=== PATIENT | male | born 1935 | race Asian ===

== ENCOUNTER 2022-03-06 09:51 | Day surgery (SDC) | payer OTHER ==
[~2022-03-06] VITALS: Ht 165.1 cm; Wt 146.0 kg
[2022-03-06] MEDS ORDERED: ASPI81CH PO (10:51)
[2022-03-06] MEDS ORDERED: METO25 PO (10:51)
[2022-03-06] MEDS ORDERED: THERA-D2000 UNIT PO (10:52)
[2022-03-06] MEDS ORDERED: ATOR20 PO (10:52)
[2022-03-06] MEDS ORDERED: TAMS.4ER PO (10:53)
[2022-03-06] MEDS ORDERED: B-121000 MC3 PO (10:53)
[2022-03-06] MEDS ORDERED: INDO50 PO (10:53)
[2022-03-06] MEDS ORDERED: ZINC15 PO (10:54)
--- NOTE | 2022-03-06 11:49 | NUR ---
PATIENT IS S/P LU[facility] DR. JARAMILLO SPOKE WITH THE IN THE WAITING ROOM. PAIIENT IS WAKING AND AN=SKING FOR AND A REPORT. BROUGHT TO THE BEDSIDE. UPDATE PATIENT ON RESULTS TOLD TO HER FROM DR. JARAMILLO. SATURATION IS 97% OTHER VSS. CONTINUE TO RECOVER.
--- NOTE | 2022-03-06 12:03 | NUR ---
FERadha IS OFF OXYGEN, MAINTAINING ROOM AIR SAT AT 97%. CLEARING THROAT AND USING SUCTION ON SELF. NO BLOOD NOTED.
== END 2022-03-06 23:19 | disposition home or self-care (01) ==
LOC: MHTC 09:51
DX: I08.3 Combined rheumatic disorders of mitral, aortic and tricuspid valves (principal); I70.0 Atherosclerosis of aorta; I25.10 Atherosclerotic heart disease of native coronary artery without angina pectoris; Z95.5 Presence of coronary angioplasty implant and graft; I10 Essential (primary) hypertension; E78.5 Hyperlipidemia, unspecified; K21.9 Gastro-esophageal reflux disease without esophagitis; Z79.82 Long term (current) use of aspirin; Z88.7 Allergy status to serum and vaccine
CPT/HCPCS: 93312; 93325; A9270; J2001; J2704; J7030

== ENCOUNTER 2023-02-09 16:23 | Emergency (ER) | payer OTHER ==
[~2023-02-09] VITALS: Ht 165.1 cm; Wt 68.0 kg
[~2023-02-09 16:23] MED LIST: ASPI81CH PO; ATOR20 PO; B-121000 MC3 PO; INDO50 PO; METO25 PO; TAMS.4ER PO; THERA-D2000 UNIT PO; ZINC15 PO
[2023-02-09] MEDS ORDERED: FAMO20 (17:09)
[2023-02-09 17:15] LABS: BASOPHILS ABSOLUTE AUTO 0.02 K/mm3 (0.00-0.23); BASOPHILS PERCENT AUTO 0 % (0-2); EOSINOPHILS ABSOLUTE AUTO 0.16 K/mm3 (0.00-0.68); EOSINOPHILS PERCENT AUTO 3 % (0-6); Hematocrit 38.1 % (37.0-53.0); Hemoglobin 13.1 g/dL (13.5-17.5); IMMATURE GRAN ABSOLUTE AUTO 0.01 K/mm3 (0.00-0.10); IMMATURE GRAN PERCENT AUTO 0 % (0-1); LYMPHOCYTES ABSOLUTE AUTO 1.42 K/mm3 (0.84-5.20); LYMPHOCYTES PERCENT AUTO 23 % (21-46); MONOCYTES ABSOLUTE AUTO 0.34 K/mm3 (0.16-1.47); MONOCYTES PERCENT AUTO 6 % (4-13); Mean Corpuscular HGB 31.5 pg (26.0-34.0); Mean Corpuscular HGB Conc 34.4 g/dL (31.5-36.5); Mean Corpuscular Volume 92 fL (80-100); Mean Platelet Volume 11.4 fL (9.1-12.4); NEUTROPHILS ABSOLUTE AUTO 4.24 K/mm3 (1.96-9.15); NEUTROPHILS PERCENT AUTO 69 % (41-73); Platelet Count 125 K/mm3 (150-400); RDW Coefficient Variation 13.1 % (11.7-14.2); RDW Standard Deviation 43.7 fL (35.1-46.3); Red Blood Cell Count 4.16 M/mm3 (4.30-5.90); White Blood Cell Count 6.19 K/mm3 (4.00-11.30)
[2023-02-09 17:52] LABS: Albumin, Blood 3.8 g/dL (3.4-5.0); Albumin/Globulin Ratio 1.2 (0.8-1.8); Bun/Creatinine Ratio 17.4 (12.0-20.0); Calcium, Blood 9.3 mg/dL (8.5-10.1); Creatinine, Blood 0.86 mg/dL (0.60-1.20); Globulin, Blood 3.1 g/dL (2.2-4.0); Total Protein, Blood 6.9 g/dL (6.4-8.2)
[2023-02-09 21:30] VITALS: BP 181/105
== END 2023-02-09 22:14 | disposition home or self-care (01) ==
LOC: ER 16:23
PROVIDERS: Student in an Organized Health Care Education/Training Program
DX: R07.9 Chest pain, unspecified (principal); I25.10 Atherosclerotic heart disease of native coronary artery without angina pectoris; N40.0 Benign prostatic hyperplasia without lower urinary tract symptoms; M10.9 Gout, unspecified; E78.5 Hyperlipidemia, unspecified; Z88.7 Allergy status to serum and vaccine; Z79.899 Other long term (current) drug therapy; Z79.82 Long term (current) use of aspirin
CPT/HCPCS: 71046; 80053; 84484; 85025; 93005; 93010; 99284-25; A9270

== ENCOUNTER 2024-12-11 12:32 | Emergency (ER) | payer OTHER ==
[~2024-12-11] VITALS: Ht 165.1 cm; Wt 70.3 kg
[~2024-12-11 12:32] MED LIST changes: -ATOR20 PO; +FAMO20; +ROSUVASTATIN CA10 MG PO; -THERA-D2000 UNIT PO; +VITAMIN D325 MC3 PO; -ZINC15 PO; +ZINC50 M3 PO
[2024-12-11 13:49] LABS: Albumin, Blood 3.5 g/dL (3.4-5.0); Albumin/Globulin Ratio 0.9 (0.8-1.8); BASOPHILS ABSOLUTE AUTO 0.02 K/mm3 (0.00-0.23); BASOPHILS PERCENT AUTO 0 % (0-2); Bilirubin, Total 1.7 mg/dL (0.1-1.0); Bun/Creatinine Ratio 14.8 (12.0-20.0); Calcium, Blood 9.2 mg/dL (8.5-10.1); Creatinine, Blood 0.95 mg/dL (0.60-1.20); EOSINOPHILS ABSOLUTE AUTO 0.01 K/mm3 (0.00-0.68); EOSINOPHILS PERCENT AUTO 0 % (0-6); Globulin, Blood 3.7 g/dL (2.2-4.0); Hematocrit 36.8 % (37.0-53.0); Hemoglobin 12.9 g/dL (13.5-17.5); IMMATURE GRAN ABSOLUTE AUTO 0.04 K/mm3 (0.00-0.10); IMMATURE GRAN PERCENT AUTO 1 % (0-1); LYMPHOCYTES ABSOLUTE AUTO 1.42 K/mm3 (0.84-5.20); LYMPHOCYTES PERCENT AUTO 20 % (21-46); MONOCYTES ABSOLUTE AUTO 0.93 K/mm3 (0.16-1.47); MONOCYTES PERCENT AUTO 13 % (4-13); Mean Corpuscular HGB 30.9 pg (26.0-34.0); Mean Corpuscular HGB Conc 35.1 g/dL (31.5-36.5); Mean Corpuscular Volume 88 fL (80-100); NEUTROPHILS PERCENT AUTO 66 % (41-73); Platelet Count 88 K/mm3 (150-400); Potassium, Blood 3.9 mmol/L (3.5-5.5); RDW Coefficient Variation 13.7 % (11.7-14.2); RDW Standard Deviation 44.4 fL (35.1-46.3); Red Blood Cell Count 4.18 M/mm3 (4.30-5.90); Total Protein, Blood 7.2 g/dL (6.4-8.2); White Blood Cell Count 7.02 K/mm3 (4.00-11.30)
[2024-12-11] MEDS ORDERED: Acetaminophen 500 MG Tab PO ONE (14:00)
[2024-12-11] MEDS ORDERED: Ketorolac Tromethamine 15mg Vial IV ONE (14:00)
[2024-12-11 16:01] LABS: Source, Urine Clean Catch
[2024-12-11 16:06] LABS: Appearance, Urine Clear (Clear); Bilirubin, Urine Neg (Neg); Blood, Urine 4+ (Neg); Color, Urine Yellow (P-Yellow); Glucose Qualitative, Urine Neg (Neg); Ketones, Urine 1+ (Neg); Leukocyte Esterase, Urine Neg (Neg); Nitrite, Urine Neg (Neg); Protein, Urine 3+ (Neg); Specific Gravity, Urine 1.015 (1.003-1.022); Urobilinogen, Urine NORM (Normal)
[2024-12-11 16:25] LABS: Bacteria Few /hpf; Squamous Epithelial Cells Not Seen /hpf (Few); White Blood Cells, Urine 0-2 /hpf (0-5)
[2024-12-11] MEDS ORDERED: ACET500 PO (16:26)
[2024-12-11 16:49] VITALS: BP 112/59
[2024-12-13] MEDS ORDERED: MAGNESIUM PO (12:47)
[2024-12-13] MEDS ORDERED: COLCRYS0.6 M1 PO (12:50)
[2024-12-13] MEDS ORDERED: AMLO5 PO (12:52)
[2024-12-13] MEDS ORDERED: ALLO100 PO (12:52)
[2024-12-13] MEDS ORDERED: ZYRTEC10 M2 PO (12:52)
== END 2024-12-11 16:51 | disposition home or self-care (01) ==
LOC: ER 12:32
PROVIDERS: Emergency Medicine; Student in an Organized Health Care Education/Training Program
DX: R07.89 Other chest pain (principal); E78.5 Hyperlipidemia, unspecified; I25.10 Atherosclerotic heart disease of native coronary artery without angina pectoris; N40.0 Benign prostatic hyperplasia without lower urinary tract symptoms; M10.9 Gout, unspecified; I73.9 Peripheral vascular disease, unspecified; Z95.0 Presence of cardiac pacemaker; Z88.7 Allergy status to serum and vaccine; Z79.82 Long term (current) use of aspirin; Z79.899 Other long term (current) drug therapy
CPT/HCPCS: 71045; 80053; 81001; 83605; 84484; 85025; 87040; 87077; 93005; 93010; 96374; 99285-25; A9270; J1885

== ENCOUNTER 2024-12-12 13:59 | Inpatient (IN) | payer OTHER ==
[~2024-12-12] VITALS: Ht 165.1 cm; Wt 69.5 kg
[~2024-12-12 13:59] MED LIST changes: +ACET500 PO
[2024-12-12] MEDS ORDERED: CefTRIAXone Sodium 1,000 MG in NS 50 ML IV ONE (14:15)
[2024-12-12 14:56] LABS: BASOPHILS ABSOLUTE AUTO 0.01 K/mm3 (0.00-0.23); BASOPHILS PERCENT AUTO 0 % (0-2); EOSINOPHILS ABSOLUTE AUTO 0.02 K/mm3 (0.00-0.68); EOSINOPHILS PERCENT AUTO 0 % (0-6); Hematocrit 34.2 % (37.0-53.0); IMMATURE GRAN ABSOLUTE AUTO 0.02 K/mm3 (0.00-0.10); IMMATURE GRAN PERCENT AUTO 0 % (0-1); LYMPHOCYTES PERCENT AUTO 11 % (21-46); MONOCYTES ABSOLUTE AUTO 0.57 K/mm3 (0.16-1.47); MONOCYTES PERCENT AUTO 9 % (4-13); Mean Corpuscular HGB 30.7 pg (26.0-34.0); Mean Corpuscular HGB Conc 35.1 g/dL (31.5-36.5); Mean Corpuscular Volume 88 fL (80-100); Mean Platelet Volume 11.7 fL (9.1-12.4); NEUTROPHILS ABSOLUTE AUTO 5.14 K/mm3 (1.96-9.15); NEUTROPHILS PERCENT AUTO 80 % (41-73); Platelet Count 93 K/mm3 (150-400); RDW Coefficient Variation 13.7 % (11.7-14.2); RDW Standard Deviation 43.6 fL (35.1-46.3); Red Blood Cell Count 3.91 M/mm3 (4.30-5.90); White Blood Cell Count 6.46 K/mm3 (4.00-11.30)
[2024-12-12 15:21] LABS: Albumin, Blood 3.2 g/dL (3.4-5.0); Albumin/Globulin Ratio 0.9 (0.8-1.8); Bilirubin, Total 1.4 mg/dL (0.1-1.0); Bun/Creatinine Ratio 16.3 (12.0-20.0); Calcium, Blood 8.9 mg/dL (8.5-10.1); Creatinine, Blood 0.92 mg/dL (0.60-1.20); Globulin, Blood 3.4 g/dL (2.2-4.0); Total Protein, Blood 6.6 g/dL (6.4-8.2)
[2024-12-12] MEDS ORDERED: Lactated Ringer's 1,000 ML IV SCH ×2 (15:45→20:30)
[2024-12-12] MEDS ORDERED: FLU VACC TS2024-25(6MOS UP)/PF 45 MCG/0.5 ML SYRINGE IM SCH (17:05)
[2024-12-12] MEDS ORDERED: PNEUMOC 20-VAL CONJ-DIP CRM/PF 0.5 ML SYRINGE IM SCH (17:05)
[2024-12-12] MEDS ORDERED: Vancomycin HCL 1,500 MG in NS 250 ML IV ONE (17:40)
[2024-12-12] MEDS ORDERED: HydrALAZINE HCl 20 MG / ML 1ML Vial IV PRN (18:05)
[2024-12-12] MEDS ORDERED: Acetaminophen 500 MG Tab PO PRN (20:35)
[2024-12-12] MEDS ORDERED: Famotidine 20 MG Tab PO ONE (20:45)
[2024-12-12] MEDS ORDERED: Atorvastatin 10 MG Tab PO SCH (21:00)
[2024-12-12] MEDS ORDERED: Indomethacin 25 MG Cap PO SCH (21:00)
[2024-12-12] MEDS ORDERED: Metoprolol Tartrate 25 MG Tab PO SCH (21:00)
[2024-12-12] MEDS ORDERED: Tamsulosin HCl 0.4 MG Cap PO SCH (21:00)
[2024-12-12 23:38] VITALS: BP 134/67
[2024-12-13] MEDS ORDERED: CeFAZolin Sodium 2,000 MG in NS 100 ML IV SCH
[2024-12-13] MEDS ORDERED: OxyCODONE HCL 5 MG TAB PO PRN (01:15)
[2024-12-13 03:19] VITALS: BP 122/59
[2024-12-13 05:06] LABS: BASOPHILS ABSOLUTE AUTO 0.02 K/mm3 (0.00-0.23); BASOPHILS PERCENT AUTO 0 % (0-2); EOSINOPHILS ABSOLUTE AUTO 0.07 K/mm3 (0.00-0.68); EOSINOPHILS PERCENT AUTO 1 % (0-6); Hematocrit 30.7 % (37.0-53.0); Hemoglobin 10.7 g/dL (13.5-17.5); IMMATURE GRAN ABSOLUTE AUTO 0.01 K/mm3 (0.00-0.10); IMMATURE GRAN PERCENT AUTO 0 % (0-1); LYMPHOCYTES ABSOLUTE AUTO 1.03 K/mm3 (0.84-5.20); LYMPHOCYTES PERCENT AUTO 21 % (21-46); MONOCYTES ABSOLUTE AUTO 0.69 K/mm3 (0.16-1.47); MONOCYTES PERCENT AUTO 14 % (4-13); Mean Corpuscular HGB 30.6 pg (26.0-34.0); Mean Corpuscular HGB Conc 34.9 g/dL (31.5-36.5); Mean Corpuscular Volume 88 fL (80-100); Mean Platelet Volume 11.5 fL (9.1-12.4); NEUTROPHILS ABSOLUTE AUTO 3.19 K/mm3 (1.96-9.15); NEUTROPHILS PERCENT AUTO 64 % (41-73); Platelet Count 88 K/mm3 (150-400); RDW Coefficient Variation 13.7 % (11.7-14.2); White Blood Cell Count 5.01 K/mm3 (4.00-11.30)
[2024-12-13 05:41] LABS: Albumin, Blood 2.7 g/dL (3.4-5.0); Albumin/Globulin Ratio 0.8 (0.8-1.8); Bilirubin, Total 0.6 mg/dL (0.1-1.0); Bun/Creatinine Ratio 16.9 (12.0-20.0); Calcium, Blood 8.7 mg/dL (8.5-10.1); Creatinine, Blood 0.77 mg/dL (0.60-1.20); Globulin, Blood 3.3 g/dL (2.2-4.0)
--- NOTE | 2024-12-13 06:16 | NUR ---
SHIFT SUMMARY PT ARRIVED FROM THE ED @ APPROX 1905, PT SELF TRANSFERRED. PT A&O X4, OBEYS COMMANDS, MOVING ALL EXTREMITIES WITH PURPOSE, HOLDING APPROPRIATE CONVERSATION, PT IND IN ROOM URING CANE/EDUCATED TO CALL BEFORE AMBULATING. CONTINUOUS SPO2. SPO2 GREATER THAN 90% ON RA, NO SIGNS OF RESPIRATORY DISTRESS NOTED, INCREASED WORK OF BREATHING WITH AMBULATION. CONTINUOUS TELE MONITORING,PACED RHYTM 40-50 S WHILE SLEEPNG/80-90 S WHILE AWAKE, BP STABLE WITH MAP GREATER THAN 65, SBP ELEVATED BUT NOT WITHIN PERAMERTERS FOR MEDICATION, PT DENIES CHEST P/P T/O THIS SHIFT, STRONG PULSES T/O, BLE EDEMA NOTED. BOWEL TONES PRESENT IN ALL 4Q, PT DENIES FEELINGS OF CONSTIPATION, ENDOSES URING STOOL SOFTENERS AT HOME. PT USING URINAL TO VOID. PT REPORTING PAIN IN BACK SHOWING THIS RN WITH HIS HANDS (OVER HIS FLANK AREA) THAT THATS WHERE THE PAIN IS THE WORST AND THAT THE PAIN MAKES IT HAD FOR HIM TO WALK AND GET OUT OF BED, MEDICATED PER ORDERS. [facility] TO [facility] RECORDS AND MEDICATION LIST, NO FAX RECEIVED AT THIS TIME. MD CAME TO BEDSIDE AND ASSESSED PT @ APPROX 0400/NEW ORDERS PLACED. BED LOWEST POSITION, CALL LIGHT IN REACH, AWAITING TO GIVE REPORT TO ONCOMING RN.
[2024-12-13 07:25] VITALS: BP 121/63
[2024-12-13] MEDS ORDERED: Zinc Sulfate 220 MG Cap (Provides 50MG) PO SCH (09:00)
[2024-12-13] MEDS ORDERED: Enoxaparin 40 MG/0.4 ML SYR SC SCH (09:00)
[2024-12-13] MEDS ORDERED: Cyanocobalamin 500 MCG Tab PO SCH (09:00)
[2024-12-13] MEDS ORDERED: Aspirin 81 MG Chew PO SCH (09:00)
[2024-12-13] MEDS ORDERED: Cholecalciferol 1000 Unit Tablet (=25MCG) PO SCH (09:00)
[2024-12-13] MEDS ORDERED: CeFAZolin Sodium 2,000 MG VIAL ONE (09:04)
[2024-12-13 09:20] LABS: Adenovirus Not Detected (NOT DETECT); Bordetella pertussis Not Detected (NOT DETECT); Chlamydophila pneumoniae Not Detected (NOT DETECT); Coronavirus 229E Not Detected (NOT DETECT); Coronavirus HKU1 Not Detected (NOT DETECT); Coronavirus NL63 Not Detected (NOT DETECT); Coronavirus OC43 Not Detected (NOT DETECT); Human Metapneumovirus Not Detected (NOT DETECT); Human Rhinovirus/Enterovirus Not Detected (NOT DETECT); Influenza A/2009-H1 Not Detected (NOT DETECT); Influenza A/H1 Not Detected (NOT DETECT); Influenza A/H3 Not Detected (NOT DETECT); Influenza B Not Detected (NOT DETECT); Mycoplasma pneumoniae Not Detected (NOT DETECT); Parainfluenza Virus 1 Not Detected (NOT DETECT); Parainfluenza Virus 2 Not Detected (NOT DETECT); Parainfluenza Virus 3 Not Detected (NOT DETECT); Parainfluenza Virus 4 Not Detected (NOT DETECT); Respiratory Syncytial Virus Not Detected (NOT DETECT); SARS-Cov-2 (COVID-19), BioFire Not Detected (NOT DETECT)
[2024-12-13] MEDS ORDERED: MAGNESIUM PO ×2 (12:47)
[2024-12-13] MEDS ORDERED: COLCRYS0.6 M1 PO ×2 (12:50)
[2024-12-13] MEDS ORDERED: ZYRTEC10 M2 PO ×2 (12:52)
[2024-12-13] MEDS ORDERED: AMLO5 PO ×2 (12:52)
[2024-12-13] MEDS ORDERED: ALLO100 PO ×2 (12:52)
[2024-12-13] MEDS ORDERED: CefTRIAXone Sodium 2,000 MG in NS 100 ML IV SCH (14:00)
[2024-12-13 15:05] VITALS: BP 125/63
--- NOTE | 2024-12-13 16:50 | NUR ---
Transfer note Pt to CT this evening, Report given to Rn assuming care of patient, transported to [address] Pt had echo and abd/pelvic us during shift. Alert, oriented x4; calm and cooperative with care. Pt up sba in room. Pt reporting abd tenderess and back pain; medicated with tylenol x1 this am with reported relief. Pt denies chest pain/pressure, sob, nausea, dizziness and numb/tinglin. Abd distended, soft, tender on palp, +bt. Tele sinus with paced beats, bp stable. Spo2 >90% on ra, breathing even and unlabred. Other vss. No other acute changes noted.
[2024-12-13 16:53] VITALS: BP 134/72
--- NOTE | 2024-12-13 17:19 | NUR ---
PT TRANSFEFFED FROM PCU13 TO ROOM 349, PT AMBULATED FROM BED AND USED THE BATHROOM. AMBUTATES STEADY ON FEET. ORIENTED TO ROOM SET UP AND CALL LIGHT.
[2024-12-13 19:30] VITALS: BP 133/59
[2024-12-13] MEDS ORDERED: Lactobacil 2-S.Thermo-Bifido 1 1 Cap PO SCH (21:00)
[2024-12-13 23:53] VITALS: BP 127/64
[2024-12-14 04:11] VITALS: BP 139/67
[2024-12-14 06:39] LABS: Hematocrit 30.5 % (37.0-53.0); Hemoglobin 10.4 g/dL (13.5-17.5); Mean Corpuscular HGB 30.6 pg (26.0-34.0); Mean Corpuscular HGB Conc 34.1 g/dL (31.5-36.5); Mean Corpuscular Volume 90 fL (80-100); Mean Platelet Volume 11.2 fL (9.1-12.4); Platelet Count 110 K/mm3 (150-400); RDW Coefficient Variation 13.8 % (11.7-14.2); RDW Standard Deviation 45.4 fL (35.1-46.3); White Blood Cell Count 5.97 K/mm3 (4.00-11.30)
--- NOTE | 2024-12-14 06:43 | NUR ---
SHIFT SUMMARY PT ALERT AND ORIENTED TIMES 4. PT ADMITTED FOR BACTEREMIA. ABLE TO MAKE NEEDS KNOWN. PT ABLE TO AMBULATE TO AND FROM TOILET . PT IS RECEPTIVE TO CARE. PT APPEARED TO SLEEP THOUGH OUT THE NIGHT. PT APPROPRIATE WITH CALL LIGHT. PT IS ON ROOM AIR.BED IN LOW POSITION, CALL LIGHT WITHIN REACH, RAILS TIMES 2.
[2024-12-14 06:58] LABS: Bun/Creatinine Ratio 18.5 (12.0-20.0); Creatinine, Blood 0.7 mg/dL (0.60-1.20); Potassium, Blood 3.9 mmol/L (3.5-5.5)
[2024-12-14 07:26] VITALS: BP 148/68
[2024-12-14] MEDS ORDERED: NS 250 ML IV PRN (08:40)
[2024-12-14] MEDS ORDERED: Allopurinol 100 MG Tab PO SCH (09:00)
[2024-12-14] MEDS ORDERED: Colchicine 0.6 MG TAB PO SCH (09:00)
[2024-12-14] MEDS ORDERED: Magnesium Oxide 400 MG Tab PO SCH (09:00)
[2024-12-14] MEDS ORDERED: Loratadine 10 MG Tab PO SCH (09:00)
[2024-12-14] MEDS ORDERED: Polyethylene Glycol 3350 17 gm PO PRN (10:20)
[2024-12-14] MEDS ORDERED: Docusate Sodium 100 MG Cap PO SCH (11:00)
[2024-12-14] MEDS ORDERED: Cyclobenzaprine HCl 10 MG Tab PO ONE (11:00)
[2024-12-14] MEDS ORDERED: Indomethacin 25 MG Cap PO SCH (12:30)
--- NOTE | 2024-12-14 19:24 | NUR ---
SUMMARY- PT A/OX4, USES CALL LIGHT. AMBULATES INDEPENDANT IN ROOM. VSS. TOLERATING FOOD AND FLUIDS. INTERMITTANT PAIN WITH MOVEMENT- HOLDING ONTO L SACRAL AREA WITH ONE PAIN EPISODE THAT CAUSES HIM TO FALL TO THE BED ONTO HIS STOMACH HE COULD NO LONGER STAND. RN AND SHOVEL LOADER OPERATOR LOG ROLLED AND ASSISTED HIM BACK UP IN HIS BED. (NEVER FELL TO THE FLOOR) MEDICATED ONCE WITH OXYCODONE WITH RELEIF. WENT HOME FOR THE NIGHT. REPORTED TO PHAM RN
[2024-12-14 19:31] VITALS: BP 145/68
[2024-12-14] MEDS ORDERED: Cyclobenzaprine HCl 10 MG Tab PO PRN (20:00)
[2024-12-15 00:12] VITALS: BP 144/66
[2024-12-15 04:24] VITALS: BP 145/61
--- NOTE | 2024-12-15 05:02 | NUR ---
PT SLEPTS WELL THIS NIGHT. VS WNL, UP TO BR INDEPENDENTLY. TELE NSR IN 60'S, NO NOTABLE PACER SPIKES. MEDICATED THIS AM FOR LOW BACK PAIN WITH OXYCODONE, EXPLAINED TO PT HE HAS TO REQUEST PAIN MEDS, HE WAS UNDER THE IMPRESSION IT WOULD COME AUTOMATICALY.
[2024-12-15 06:01] LABS: BASOPHILS ABSOLUTE AUTO 0.02 K/mm3 (0.00-0.23); BASOPHILS PERCENT AUTO 0 % (0-2); EOSINOPHILS ABSOLUTE AUTO 0.18 K/mm3 (0.00-0.68); EOSINOPHILS PERCENT AUTO 3 % (0-6); Hematocrit 30.9 % (37.0-53.0); Hemoglobin 10.7 g/dL (13.5-17.5); IMMATURE GRAN ABSOLUTE AUTO 0.02 K/mm3 (0.00-0.10); IMMATURE GRAN PERCENT AUTO 0 % (0-1); LYMPHOCYTES PERCENT AUTO 22 % (21-46); MONOCYTES ABSOLUTE AUTO 0.55 K/mm3 (0.16-1.47); MONOCYTES PERCENT AUTO 9 % (4-13); Mean Corpuscular HGB 30.8 pg (26.0-34.0); Mean Corpuscular HGB Conc 34.6 g/dL (31.5-36.5); Mean Corpuscular Volume 89 fL (80-100); Mean Platelet Volume 11.2 fL (9.1-12.4); NEUTROPHILS PERCENT AUTO 65 % (41-73); Platelet Count 148 K/mm3 (150-400); RDW Coefficient Variation 13.6 % (11.7-14.2); RDW Standard Deviation 44.6 fL (35.1-46.3); Red Blood Cell Count 3.47 M/mm3 (4.30-5.90); White Blood Cell Count 5.87 K/mm3 (4.00-11.30)
[2024-12-15 06:32] LABS: Albumin, Blood 2.8 g/dL (3.4-5.0); Albumin/Globulin Ratio 0.8 (0.8-1.8); Bilirubin, Total 0.7 mg/dL (0.1-1.0); Bun/Creatinine Ratio 15.4 (12.0-20.0); Calcium, Blood 9.1 mg/dL (8.5-10.1); Creatinine, Blood 0.78 mg/dL (0.60-1.20); Globulin, Blood 3.5 g/dL (2.2-4.0); Total Protein, Blood 6.3 g/dL (6.4-8.2)
[2024-12-15 07:35] VITALS: BP 157/64
[2024-12-15 11:26] VITALS: BP 145/63
[2024-12-15 16:12] VITALS: BP 132/69
--- NOTE | 2024-12-15 18:20 | NUR ---
PT QUITE PLEASNT TODAY. TALKATIVE. 1 EVENT OF EMESIS TODAY. ORDERS FOR COLONOSCOPY GOING IN TON[place] PER DR BOJORQUEZ. START TONITE, FINISH TOMORROW. PLAN FOR SCOPE TOMORROW AFTERNOON. NO FURTHER CONCERNS NOTED TODAY. BED IN LOW POSITION, CALL LITE IN REACH, CALLS APPROP
[2024-12-15] MEDS ORDERED: Peg/Electrolytes 4,000 ML BTL PO ONE (19:00)
[2024-12-15 19:42] VITALS: BP 145/65
[2024-12-16] VITALS (8 sets, daily range): BP systolic 139–157; BP diastolic 55–71
--- NOTE | 2024-12-16 04:52 | NUR ---
PT A&O X4, VS WNL, INPENDENT , TELE NSR WITH 1ST DEGREE BLOCK, GOLYTELY COMPLETED WITH CLEAR GREAN STOOL. PLAN TO HAVE COLONOSCOPY TODAY. SLEPT WELL AFTER PREP.
[2024-12-16 05:57] LABS: BASOPHILS ABSOLUTE AUTO 0.02 K/mm3 (0.00-0.23); BASOPHILS PERCENT AUTO 0 % (0-2); EOSINOPHILS PERCENT AUTO 4 % (0-6); Hematocrit 31.5 % (37.0-53.0); Hemoglobin 10.9 g/dL (13.5-17.5); Mean Corpuscular HGB 30.8 pg (26.0-34.0); Mean Corpuscular HGB Conc 34.6 g/dL (31.5-36.5); Mean Corpuscular Volume 89 fL (80-100); Mean Platelet Volume 10.6 fL (9.1-12.4); Platelet Count 163 K/mm3 (150-400); RDW Coefficient Variation 13.3 % (11.7-14.2); RDW Standard Deviation 43.8 fL (35.1-46.3); Red Blood Cell Count 3.54 M/mm3 (4.30-5.90); White Blood Cell Count 4.75 K/mm3 (4.00-11.30)
[2024-12-16 05:59] LABS: IMMATURE GRAN ABSOLUTE AUTO 0.01 K/mm3 (0.00-0.10); IMMATURE GRAN PERCENT AUTO 0 % (0-1); LYMPHOCYTES ABSOLUTE AUTO 1.19 K/mm3 (0.84-5.20); LYMPHOCYTES PERCENT AUTO 25 % (21-46); MONOCYTES ABSOLUTE AUTO 0.46 K/mm3 (0.16-1.47); MONOCYTES PERCENT AUTO 10 % (4-13); NEUTROPHILS ABSOLUTE AUTO 2.87 K/mm3 (1.96-9.15); NEUTROPHILS PERCENT AUTO 60 % (41-73)
[2024-12-16 06:29] LABS: Albumin, Blood 2.9 g/dL (3.4-5.0); Albumin/Globulin Ratio 0.8 (0.8-1.8); Bilirubin, Total 0.7 mg/dL (0.1-1.0); Bun/Creatinine Ratio 14.3 (12.0-20.0); Calcium, Blood 8.9 mg/dL (8.5-10.1); Creatinine, Blood 0.84 mg/dL (0.60-1.20); Globulin, Blood 3.7 g/dL (2.2-4.0); Total Protein, Blood 6.6 g/dL (6.4-8.2)
[2024-12-16] MEDS ORDERED: Peg/Electrolytes 4,000 ML BTL PO ONE (07:00)
[2024-12-16] MEDS ORDERED: Lactated Ringer's 1,000 ML IV SCH (15:25)
[2024-12-16] MEDS ORDERED: propofoL 20 ML IV ONE ×2 (16:23→17:52)
--- NOTE | 2024-12-16 16:57 | NUR ---
SHIFT SUMMARY PT AOX4, COOPERATIVE, ABLE TO MAKE NEEDS KNOWN. PT HAD BOWEL PREP AT 0700 FOR COLONOSCOPY AT 1600 WHICH PT IS AT NOW FOR ABOUT AN HOUR. WAS NPO 1100 UNTIL CURRENTLY. PT IS GETTING RESTLESS AND IRRITABLE EARLIER THIS SHIFT DUE TO COLONOSCOPY, THIS RN KEPT PT UP TO DATE NEEDED. AMBULATING IN ROOM IND, USING COMMODE APPROPRIATELY. BED IN LOWEST POSITION, CALL LIGHT WITHIN REACH.
--- NOTE | 2024-12-16 17:38 | NUR ---
12/16/24 5020 Bryson Pizano History, Chart, Medications and Allergies reviewed before start of procedure. MONITOR INTACT WITH CONTINUOUS PULSE OXIMETRY, CONTINUOUS END TITAL CO2, 3-LEAD EKG AND INTERMITTENT BLOOD PRESSURE. 3-LEAD EKG REVIEWED WITH PHYSICIAN PRIOR TO START OF PROCEDURE. O2 VIA POM INTACT THROUGHOUT SEDATION/PROCEDURE. PT HAS JACKET, UNDERWEAR, AND CANE IN PT BELONGINGS BAG IN DAY SURGERY.
--- NOTE | 2024-12-16 18:35 | NUR ---
PT'S CANE, SWEATSHIRT, AND UNDERWEAR RETURNED TO THE ROOM WITH PT. PT WAS ABLE TO TRANSFER TO HOSP BED WITH STANDBY ASSIST.
[2024-12-17] VITALS (7 sets, daily range): BP systolic 131–147; BP diastolic 62–74
[2024-12-17 06:37] LABS: Albumin, Blood 2.8 g/dL (3.4-5.0); Albumin/Globulin Ratio 0.8 (0.8-1.8); Bilirubin, Total 0.7 mg/dL (0.1-1.0); Creatinine, Blood 0.76 mg/dL (0.60-1.20); Globulin, Blood 3.6 g/dL (2.2-4.0); Potassium, Blood 4.1 mmol/L (3.5-5.5); Total Protein, Blood 6.4 g/dL (6.4-8.2)
[2024-12-17] MEDS ORDERED: AmLODIPine Besylate 5 MG Tab PO SCH (09:00)
[2024-12-17] MEDS ORDERED: Peg/Electrolytes 4,000 ML BTL PO ONE (09:00)
[2024-12-17] MEDS ORDERED: Lactated Ringer's 1,000 ML IV SCH (15:50)
--- NOTE | 2024-12-17 16:11 | NUR ---
INTO [facility] VIA [facility]. HISTORY AND ALLERGIES REVIEWED.LUNGS CLEAR. NPO STATUS CONFIRMED. COLON PREP CONFIRMED CLEAR.
--- NOTE | 2024-12-17 16:39 | NUR ---
12/17/24 1639 Gracie Ventura INTO ENDO 1 @1630- History, Chart, Medications and Allergies reviewed before start of procedure.MONITOR INTACT WITH CONTINUOUS PULSE OXIMETRY, CONTINUOUS END TITAL CO2, 3-LEAD EKG AND INTERMITTENT BLOOD PRESSURE.3-LEAD EKG REVIEWED WITH PHYSICIAN PRIOR TO START OF PROCEDURE.O2 VIA POM INTACT THROUGHOUT SEDATION/PROCEDURE. PROVIDING MAC-SEE ANESTHESIA RECORD.
--- NOTE | 2024-12-17 16:44 | NUR ---
SHIFT SUMMARY PT AOX4, COOPERATIVE, ABLE TO MAKE NEEDS KNOWN. PT CONSUMED BOWEL PREP THIS AM FOR COLONOSCOPY AT 1600. WAS MADE NPO AT 1300 WITHOUT COMPLAINTS. NO COMPLAINT OF PAIN OR OTHER NEEDS. NO OTHER ACUTE EVENTS TOOK PLACE THIS SHIFT. BED IN LOWEST POSITION, CALL LIGHT WITHIN REACH.
[2024-12-17] MEDS ORDERED: propofoL 20 ML IV ONE (17:30)
[2024-12-18 02:07] VITALS: BP 122/59
[2024-12-18 05:20] VITALS: BP 124/54
[2024-12-18 05:53] LABS: BASOPHILS ABSOLUTE AUTO 0.03 K/mm3 (0.00-0.23); BASOPHILS PERCENT AUTO 1 % (0-2); EOSINOPHILS ABSOLUTE AUTO 0.15 K/mm3 (0.00-0.68); EOSINOPHILS PERCENT AUTO 3 % (0-6); Hematocrit 30.9 % (37.0-53.0); Hemoglobin 10.7 g/dL (13.5-17.5); IMMATURE GRAN ABSOLUTE AUTO 0.04 K/mm3 (0.00-0.10); IMMATURE GRAN PERCENT AUTO 1 % (0-1); LYMPHOCYTES ABSOLUTE AUTO 1.27 K/mm3 (0.84-5.20); LYMPHOCYTES PERCENT AUTO 24 % (21-46); MONOCYTES ABSOLUTE AUTO 0.52 K/mm3 (0.16-1.47); MONOCYTES PERCENT AUTO 10 % (4-13); Mean Corpuscular HGB 30.5 pg (26.0-34.0); Mean Corpuscular HGB Conc 34.6 g/dL (31.5-36.5); Mean Corpuscular Volume 88 fL (80-100); Mean Platelet Volume 10.4 fL (9.1-12.4); NEUTROPHILS ABSOLUTE AUTO 3.36 K/mm3 (1.96-9.15); NEUTROPHILS PERCENT AUTO 63 % (41-73); Platelet Count 196 K/mm3 (150-400); RDW Coefficient Variation 13.4 % (11.7-14.2); RDW Standard Deviation 43.3 fL (35.1-46.3); Red Blood Cell Count 3.51 M/mm3 (4.30-5.90); White Blood Cell Count 5.37 K/mm3 (4.00-11.30)
[2024-12-18 06:34] LABS: Albumin, Blood 2.7 g/dL (3.4-5.0); Albumin/Globulin Ratio 0.8 (0.8-1.8); Bilirubin, Total 0.8 mg/dL (0.1-1.0); Bun/Creatinine Ratio 13.7 (12.0-20.0); Creatinine, Blood 0.8 mg/dL (0.60-1.20); Globulin, Blood 3.4 g/dL (2.2-4.0); Potassium, Blood 3.7 mmol/L (3.5-5.5); Total Protein, Blood 6.1 g/dL (6.4-8.2)
[2024-12-18 07:24] VITALS: BP 147/65
--- NOTE | 2024-12-18 15:25 | NUR ---
SHIFT SUMMARY MR GUZMAN IS OX4. SR AND VPACED ON TELE, NO CALLS FROM CROSS TIE CUTTER. UP TO BATHROOM, SMALL SEMI-FORMED STOOL DARK RED IN APPEARANCE. HE REPORTS BRB IN STOOL EARLIER THIS MORNING WHICH WAS NOT SEEN BY NURSE, PT DISCUSSED WITH DR OBREGON. 12/29 RLQ ABDOMINAL PAIN ON ASSESSMENT. HE DENIES NAUSEA. SUPPORTIVE FAMILY AT BEDSIDE. IN CHAIR, CALL LIGHT IN REACH.
[2024-12-18 16:14] VITALS: BP 136/54
[2024-12-18 19:51] VITALS: BP 131/62
[2024-12-19 01:02] VITALS: BP 132/61
[2024-12-19 05:55] VITALS: BP 136/64
[2024-12-19 06:47] LABS: BASOPHILS ABSOLUTE AUTO 0.03 K/mm3 (0.00-0.23); BASOPHILS PERCENT AUTO 1 % (0-2); EOSINOPHILS ABSOLUTE AUTO 0.15 K/mm3 (0.00-0.68); EOSINOPHILS PERCENT AUTO 3 % (0-6); Hemoglobin 10.9 g/dL (13.5-17.5); IMMATURE GRAN ABSOLUTE AUTO 0.05 K/mm3 (0.00-0.10); IMMATURE GRAN PERCENT AUTO 1 % (0-1); LYMPHOCYTES ABSOLUTE AUTO 1.43 K/mm3 (0.84-5.20); LYMPHOCYTES PERCENT AUTO 24 % (21-46); MONOCYTES ABSOLUTE AUTO 0.64 K/mm3 (0.16-1.47); MONOCYTES PERCENT AUTO 11 % (4-13); Mean Corpuscular HGB 30.3 pg (26.0-34.0); Mean Corpuscular HGB Conc 34.1 g/dL (31.5-36.5); Mean Corpuscular Volume 89 fL (80-100); Mean Platelet Volume 10.3 fL (9.1-12.4); NEUTROPHILS ABSOLUTE AUTO 3.61 K/mm3 (1.96-9.15); NEUTROPHILS PERCENT AUTO 61 % (41-73); Platelet Count 212 K/mm3 (150-400); RDW Coefficient Variation 13.3 % (11.7-14.2); RDW Standard Deviation 43.2 fL (35.1-46.3); White Blood Cell Count 5.91 K/mm3 (4.00-11.30)
[2024-12-19 07:26] LABS: Bun/Creatinine Ratio 13.5 (12.0-20.0); Calcium, Blood 8.9 mg/dL (8.5-10.1); Creatinine, Blood 0.81 mg/dL (0.60-1.20); Potassium, Blood 3.9 mmol/L (3.5-5.5)
[2024-12-19 07:34] VITALS: BP 127/61
[2024-12-19 11:57] VITALS: BP 137/63
[2024-12-19] MEDS ORDERED: CEFTRIAXONE2 G1 IV ×2 (12:42)
[2024-12-19] MEDS ORDERED: LACT PO ×2 (12:43)
--- NOTE | 2024-12-19 16:34 | NUR ---
DISCHARGE NOTE: PATIENT WHEELED DOWN TO [facility] BY GAS METER CHECKER WITH POWER GLIDE IN PLACE FOR [facility]. PATIENT GOT HIMSELF DRESSING AND GATHERED BELONGINGS. NO SIGNS OR SYMPTOMS OF DISTRESS WITH DISCHARGE. IV AND TELE REMOVED.
== END 2024-12-19 16:36 | disposition home or self-care (01) | DRG 872 ==
LOC: ER 13:59 → ERHOLD 16:56 → PCU 16:56 → MEDS 16:56 → PCU 19:06 → MEDS 12-13 16:44 → ENPENDDIS 12-19 11:25 → MEDS 12-19 16:36
PROVIDERS: Emergency Medicine; Family Medicine; Registered Nurse; Student in an Organized Health Care Education/Training Program; ADMIT Internal Medicine
DX: A40.9 Streptococcal sepsis, unspecified (principal); D12.6 Benign neoplasm of colon, unspecified; I25.10 Atherosclerotic heart disease of native coronary artery without angina pectoris; E78.5 Hyperlipidemia, unspecified; N40.0 Benign prostatic hyperplasia without lower urinary tract symptoms; K21.9 Gastro-esophageal reflux disease without esophagitis; F41.9 Anxiety disorder, unspecified; M10.9 Gout, unspecified; I73.9 Peripheral vascular disease, unspecified; Z98.890 Other specified postprocedural states; Z88.7 Allergy status to serum and vaccine; Z79.82 Long term (current) use of aspirin; Z79.899 Other long term (current) drug therapy; D69.6 Thrombocytopenia, unspecified; R74.01 Elevation of levels of liver transaminase levels; Z95.0 Presence of cardiac pacemaker
CPT/HCPCS: 0202U; 36415; 71260; 74177; 76705; 76857; 80048; 80053; 82378; 83605; 84145; 85025; 85027; 85651; 86140; 87040; 88305; 93306; 96374; 99284-25; A9270; C1751; J0690; J0696; J1650; J2704; J3370; J7050; J7120; Q9967

== ENCOUNTER 2024-12-20 03:03 | Day surgery (SDC) | payer OTHER ==
[~2024-12-20 03:03] MED LIST changes: +ALLO100 PO; +AMLO5 PO; +CEFTRIAXONE2 G1 IV; +COLCRYS0.6 M1 PO; +LACT PO; +MAGNESIUM PO; +ZYRTEC10 M2 PO
[2024-12-20] MEDS ORDERED: CefTRIAXone Sodium 2,000 MG in NS 100 ML IV SCH (06:00)
[2024-12-20 15:06] VITALS: BP 132/67
== END 2024-12-20 15:40 | disposition home or self-care (01) ==
LOC: ATC 03:03
DX: A40.8 Other streptococcal sepsis (principal); I25.10 Atherosclerotic heart disease of native coronary artery without angina pectoris; E78.5 Hyperlipidemia, unspecified; Z88.7 Allergy status to serum and vaccine; Z79.82 Long term (current) use of aspirin; Z79.899 Other long term (current) drug therapy; M10.9 Gout, unspecified; N40.0 Benign prostatic hyperplasia without lower urinary tract symptoms
CPT/HCPCS: 96365; J0696

== ENCOUNTER 2024-12-21 14:35 | Day surgery (SDC) | payer OTHER ==
[~2024-12-21 14:35] MED LIST changes: +CefTRIAXone Sodium 2,000 MG in NS 100 ML IV SCH
[2024-12-21 14:45] VITALS: BP 143/67
== END 2024-12-21 15:15 | disposition home or self-care (01) ==
LOC: ATC 14:35
DX: R78.81 Bacteremia (principal); I25.10 Atherosclerotic heart disease of native coronary artery without angina pectoris; E78.5 Hyperlipidemia, unspecified; N40.0 Benign prostatic hyperplasia without lower urinary tract symptoms; I73.9 Peripheral vascular disease, unspecified; K21.9 Gastro-esophageal reflux disease without esophagitis; M10.9 Gout, unspecified; Z95.0 Presence of cardiac pacemaker; Z95.5 Presence of coronary angioplasty implant and graft; Z79.82 Long term (current) use of aspirin; Z79.899 Other long term (current) drug therapy; Z88.7 Allergy status to serum and vaccine
CPT/HCPCS: 96365; J0696

== ENCOUNTER 2024-12-22 01:14 | Day surgery (SDC) | payer OTHER ==
[~2024-12-22 01:14] MED LIST changes: -CefTRIAXone Sodium 2,000 MG in NS 100 ML IV SCH
[2024-12-22] MEDS ORDERED: CefTRIAXone Sodium 2,000 MG in NS 100 ML IV SCH (06:00)
[2024-12-22 14:49] VITALS: BP 152/68
== END 2024-12-22 15:05 | disposition home or self-care (01) ==
LOC: ATC 01:14
DX: R78.81 Bacteremia (principal); I25.10 Atherosclerotic heart disease of native coronary artery without angina pectoris; E78.5 Hyperlipidemia, unspecified; I73.9 Peripheral vascular disease, unspecified; M10.9 Gout, unspecified; N40.0 Benign prostatic hyperplasia without lower urinary tract symptoms; Z95.0 Presence of cardiac pacemaker; Z88.7 Allergy status to serum and vaccine; Z79.82 Long term (current) use of aspirin; Z79.899 Other long term (current) drug therapy
CPT/HCPCS: 96365; J0696

== ENCOUNTER 2024-12-23 00:34 | Day surgery (SDC) | payer OTHER ==
[2024-12-23] MEDS ORDERED: CefTRIAXone Sodium 2,000 MG in NS 100 ML IV SCH (01:00)
[2024-12-23 14:28] VITALS: BP 118/65
== END 2024-12-23 14:50 | disposition home or self-care (01) ==
LOC: ATC 00:34
DX: R78.81 Bacteremia (principal); I25.10 Atherosclerotic heart disease of native coronary artery without angina pectoris; I10 Essential (primary) hypertension; N40.0 Benign prostatic hyperplasia without lower urinary tract symptoms; E78.5 Hyperlipidemia, unspecified; I73.9 Peripheral vascular disease, unspecified; K21.9 Gastro-esophageal reflux disease without esophagitis; M10.9 Gout, unspecified; Z95.0 Presence of cardiac pacemaker; Z95.5 Presence of coronary angioplasty implant and graft; Z88.7 Allergy status to serum and vaccine; Z79.899 Other long term (current) drug therapy
CPT/HCPCS: 96365; J0696

== ENCOUNTER 2024-12-24 01:08 | Day surgery (SDC) | payer OTHER ==
[~2024-12-24 01:08] MED LIST changes: +CefTRIAXone Sodium 2,000 MG in NS 100 ML IV SCH
[2024-12-24 14:35] VITALS: BP 134/97
== END 2024-12-24 15:10 | disposition home or self-care (01) ==
LOC: ATC 01:08
DX: R78.81 Bacteremia (principal); I25.10 Atherosclerotic heart disease of native coronary artery without angina pectoris; N40.0 Benign prostatic hyperplasia without lower urinary tract symptoms; E78.5 Hyperlipidemia, unspecified; I73.9 Peripheral vascular disease, unspecified; Z79.82 Long term (current) use of aspirin; Z79.899 Other long term (current) drug therapy; Z98.61 Coronary angioplasty status; M10.9 Gout, unspecified
CPT/HCPCS: 96365; J0696

== ENCOUNTER 2024-12-25 02:01 | Day surgery (SDC) | payer OTHER ==
[~2024-12-25 02:01] MED LIST changes: -CefTRIAXone Sodium 2,000 MG in NS 100 ML IV SCH
[2024-12-25] MEDS ORDERED: CefTRIAXone Sodium 2,000 MG in NS 100 ML IV SCH (06:00)
[2024-12-25 14:40] VITALS: BP 163/64
== END 2024-12-25 15:07 | disposition home or self-care (01) ==
LOC: ATC 02:01
DX: A41.1 Sepsis due to other specified staphylococcus (principal); I25.10 Atherosclerotic heart disease of native coronary artery without angina pectoris; M1A.9XX0 Chronic gout, unspecified, without tophus (tophi); E78.5 Hyperlipidemia, unspecified; N40.0 Benign prostatic hyperplasia without lower urinary tract symptoms; Z95.5 Presence of coronary angioplasty implant and graft; Z88.7 Allergy status to serum and vaccine; Z79.82 Long term (current) use of aspirin; Z79.899 Other long term (current) drug therapy
CPT/HCPCS: 96365; J0696

== ENCOUNTER 2024-12-26 04:38 | Day surgery (SDC) | payer OTHER ==
[2024-12-26] MEDS ORDERED: CefTRIAXone Sodium 2,000 MG in NS 100 ML IV SCH (06:00)
[2024-12-26 14:22] VITALS: BP 140/61
== END 2024-12-26 14:47 | disposition home or self-care (01) ==
LOC: ATC 04:38
DX: R78.81 Bacteremia (principal); I25.10 Atherosclerotic heart disease of native coronary artery without angina pectoris; E78.5 Hyperlipidemia, unspecified; I73.9 Peripheral vascular disease, unspecified; Z79.899 Other long term (current) drug therapy; Z98.61 Coronary angioplasty status
CPT/HCPCS: 96374; J0696

== ENCOUNTER 2024-12-27 03:25 | Day surgery (SDC) | payer OTHER ==
[~2024-12-27 03:25] MED LIST changes: +CefTRIAXone Sodium 2,000 MG in NS 100 ML IV SCH
[2024-12-27 14:39] VITALS: BP 135/73
== END 2024-12-27 15:03 | disposition home or self-care (01) ==
LOC: ATC 03:25
DX: R78.81 Bacteremia (principal); I25.10 Atherosclerotic heart disease of native coronary artery without angina pectoris; E78.5 Hyperlipidemia, unspecified; I73.9 Peripheral vascular disease, unspecified
CPT/HCPCS: 96365; J0696

== ENCOUNTER 2024-12-28 01:49 | Day surgery (SDC) | payer OTHER ==
[2024-12-28 14:46] VITALS: BP 138/69
== END 2024-12-28 15:18 | disposition home or self-care (01) ==
LOC: ATC 01:49
DX: R78.81 Bacteremia (principal); I25.10 Atherosclerotic heart disease of native coronary artery without angina pectoris; I10 Essential (primary) hypertension; E78.5 Hyperlipidemia, unspecified; N40.0 Benign prostatic hyperplasia without lower urinary tract symptoms; I73.9 Peripheral vascular disease, unspecified; K21.9 Gastro-esophageal reflux disease without esophagitis; M10.9 Gout, unspecified; Z95.0 Presence of cardiac pacemaker; Z95.5 Presence of coronary angioplasty implant and graft; Z88.7 Allergy status to serum and vaccine; Z79.82 Long term (current) use of aspirin; Z79.899 Other long term (current) drug therapy
CPT/HCPCS: 96365; J0696

== ENCOUNTER 2024-12-29 02:22 | Day surgery (SDC) | payer OTHER ==
[2024-12-29 14:39] VITALS: BP 134/57
== END 2024-12-29 15:07 | disposition home or self-care (01) ==
LOC: ATC 02:22
DX: A40.8 Other streptococcal sepsis (principal); I49.5 Sick sinus syndrome; I25.10 Atherosclerotic heart disease of native coronary artery without angina pectoris; E78.5 Hyperlipidemia, unspecified; M1A.9XX0 Chronic gout, unspecified, without tophus (tophi); N40.0 Benign prostatic hyperplasia without lower urinary tract symptoms; Z88.7 Allergy status to serum and vaccine; Z79.82 Long term (current) use of aspirin; Z79.899 Other long term (current) drug therapy
CPT/HCPCS: 96365; J0696

== ENCOUNTER → 2025-09-28 | Outpatient (CLI) | payer OTHER ==
[~2025-09-28] MED LIST changes: -CefTRIAXone Sodium 2,000 MG in NS 100 ML IV SCH
[2025-10-01 11:13] LABS: ALBUMIN %,URINE 69.4 %; ALPHA-1 %,URINE 3.5 %; ALPHA-2 %,URINE 12.5 %; BETA GLOBULIN %,URINE 12.2 %; GAMMA GLOBULIN %,URINE 2.4 %; HOURS COLLECTED 24 hr; PARAPROTEIN %,URINE 0.0 %; PARAPROTEIN EXCRETION/24 HOUR 0.0
== END ==
LOC: LAB 09:57 → LAB SHORT 09:57
PROVIDERS: Student in an Organized Health Care Education/Training Program
DX: R42 Dizziness and giddiness (principal); R06.09 Other forms of dyspnea
CPT/HCPCS: 81050; 84156; 84166; 86335